=== PATIENT | female | born 1960 | race Caucasian/White ===

== ENCOUNTER 2022-07-19 15:50 | Outpatient (CLI) | payer OTHER, SELFPAY ==
[2022-07-19 21:59] LABS: Chloride* 96 mmol/L (96-114); Sodium* 133 mmol/L (135-149)
[2022-07-19 22:00] LABS: Potassium* 4.7 mmol/L (3.6-5.1)
[2022-07-19 22:01] LABS: Cholesterol* 305 mg/dL (90-199); Creatinine* 0.7 mg/dL (0.5-1.5); Estimated Glomerular Filt Rate 97 ml/min
[2022-07-19 22:02] LABS: Alanine Aminotransferase* 44 U/L (4-35); Alkaline Phosphatase* 83 U/L (40-150); Aspartate Amino Transferase* 40 U/L (12-35); Bilirubin Total* 0.6 mg/dL (0.1-1.5); Blood Urea Nitrogen* 18 mg/dL (7-30); Carbon Dioxide* 25 mmol/L (20-32); Glucose* 96 mg/dL (60-115); Total Protein* 8.1 g/dL (6.0-8.3); Triglycerides* 133 mg/dL (40-149)
[2022-07-19 22:03] LABS: Calcium* 9.8 mg/dL (8.4-10.6)
[2022-07-19 22:47] LABS: HDL Cholesterol* 119 mg/dL (>=50); LDL Cholesterol Calculated 159 mg/dL (<100)
[2022-07-19 22:50] LABS: Hepatitis C Virus Antibody* Negative (Negative)
== END 2022-07-19 15:51 | disposition home or self-care (01) ==
PROVIDERS: PCP Family Medicine; Visit Provider Family Medicine
DX: Z00.00 Encounter for general adult medical examination without abnormal findings (principal); E03.9 Hypothyroidism, unspecified; Z13.6 Encounter for screening for cardiovascular disorders; Z11.59 Encounter for screening for other viral diseases
CPT/HCPCS: 80053; 80061; 84443; 86803

== ENCOUNTER 2024-01-23 09:51 | Outpatient (CLI) | payer OTHER, SELFPAY | END 2024-01-23 09:52 | disposition home or self-care (01) | PROVIDERS: PCP Family Medicine; Visit Provider Family Medicine | DX: E03.9 Hypothyroidism, unspecified (principal); Z13.228 Encounter for screening for other metabolic disorders; Z13.220 Encounter for screening for lipoid disorders; Z11.59 Encounter for screening for other viral diseases | CPT/HCPCS: 80053; 80061; 84443; 86803 ==

== ENCOUNTER 2024-06-17 13:59 | Outpatient (CLI) | payer OTHER, SELFPAY | END 2024-06-17 14:00 | disposition home or self-care (01) | PROVIDERS: PCP Family Medicine; Visit Provider Family Medicine | DX: Z00.00 Encounter for general adult medical examination without abnormal findings (principal); E03.9 Hypothyroidism, unspecified; Z13.6 Encounter for screening for cardiovascular disorders; Z13.1 Encounter for screening for diabetes mellitus | CPT/HCPCS: 80053; 80061; 84439; 84443 ==

== ENCOUNTER 2024-07-23 09:46 | Outpatient (CLI) | payer OTHER, SELFPAY ==
--- NOTE | 2024-07-23 10:15 | CRLHL7_ITS ---
For Patients: As a result of the Century Cures Act, medical imaging exams and procedure reports are released immediately into your electronic medical record. You may view this report before your referring provider. If you have questions, please contact your health care provider. CLINICAL HISTORY: Elevated LFTs FINDINGS: The patient`s liver is of normal size and has uniform echogenicity. There is a normal appearance of the hepatic IVC and proximal abdominal aorta. There is no evidence of ascites. The gallbladder is of normal size and there is no evidence of intraluminal stones or sludge. The gallbladder wall measures 2 mm in thickness. The common bile duct is of normal size and measures 3 mm in diameter at the level of the adryan hepatis. The pancreas appears normal. Right kidney is unremarkable. IMPRESSION: Unremarkable right upper quadrant ultrasound. Dictated by Mily Gaspar MD @ 07/26/2024 9:04:06 AM (Electronically Signed)
== END 2024-07-23 09:47 | disposition home or self-care (01) ==
PROVIDERS: PCP Family Medicine; Visit Provider Family Medicine
DX: R79.89 Other specified abnormal findings of blood chemistry (principal)
CPT/HCPCS: 76705

== ENCOUNTER 2024-09-09 13:57 | Outpatient (CLI) | payer OTHER, SELFPAY ==
--- NOTE | 2024-09-09 14:30 | XR_ITS ---
Patient: YOHANA MARKHAM Facility:?[facility] Patient ID:?[id number] Site Patient ID:?[id number]. Site :?[id number] Study:?DEXA-Bone Density [place]/ madhav hips-09/09/2024 10:01:46 AM Ordering Physician:?YOBANY DEMARCO Final Report: XR DXA Bone Mineral Density (BMD) Reason for exam: Screening for osteoporosis. Hyperparathyroidism. Current height (in): 63. Weight (lb): 150. Menopause age: 51. Ethnicity: White. 1. Have you had a previous hip or vertebral fracture? No. 2. Have you had any fractures during your adult life which did not result from significant trauma (e.g., auto accident)? No. 3. Did either of your parents have a hip fracture? No. 4. Do you smoke? No. 5. Have you ever taken Glucocorticoids? No. 6. Do you have rheumatoid arthritis? No. 7. Do you have secondary osteoporosis? No. 8. Do you drink 3 or more alcoholic drinks per day? No. 9. Are you being treated for osteoporosis? No. 10. Have you ever taken any of the following medications: Actonel, Evista, Fosamax, Miacalcin, Reclast, Boniva, Forteo, HRT (i.e. estrogen/hormone therapy), Protelos, Prolia, Vitamin D, Calcium, other ? please specify. ANSWER: Yes, Synthroid. 11. Do you have any of the following medical conditions: Anorexia or bulimia, asthma or emphysema, end stage renal disease, hyperparathyroidism, any seizure disorders, cancer, inflammatory bowel diseases, hysterectomy, other ? please specify. ANSWER: Yes, hyperparathyroidism, hysterectomy. 12. What was your maximum height (inches)? 64. 13. Do you perform weight bearing exercise regularly? Yes. 14. Do you regularly consume dairy products? Yes. 15. Do you drink caffeinated beverages? Yes. 16. At what age did your period start? 11. 17. Are you premenopausal? No. 18. How many full term pregnancies have you had? 2. 19. Have you ever missed your period for more than 6 months in a row (not including or menopause)? No. TECHNIQUE: Bone mineral density study was performed using the [facility]. FINDINGS: The results of the study expressed as bone mineral density (BMD) are as follows: Lumbar spine L1 to L4: BMD: 0.999 g/cm2. T-score: 0.1. Z-score: 1.7. Neck Left: BMD: 0.748 g/cm2. T-score: -0.9. Z-score: 0.7. Right: BMD: 0.744 g/cm2. T-score: -0.9. Z-score: 0.6. Total Left: BMD: 1.008 g/cm2. T-score: 0.5. Z-score: 1.8. Right: BMD: 0.969 g/cm2. T-score: 0.2. Z-score: 1.5. IMPRESSION: Normal bone density. John Caba M.D. Diagnostic Radiologist [email or web address] CHUCHO/vanessa / bM/Dictated by: John Caba MD @ 09/10/2024 10:17:00 AM (Electronic Signature)
--- NOTE | 2024-09-09 15:20 | CRLHL7_ITS ---
For Patients: As a result of the Century Cures Act, medical imaging exams and procedure reports are released immediately into your electronic medical record. You may view this report before your referring provider. If you have questions, please contact your health care provider. BILATERAL SCREENING MAMMOGRAM WITH COMPUTER-AIDED DETECTION AND TOMOSYNTHESIS TECHNIQUE: CC and MLO views were obtained. These mammographic images have been obtained using full-field digital technique. These mammographic images were interpreted with the benefit of computer-aided detection. Breast Tomosynthesis was used in this interpretation. COMPARISON FILM: No comparison available. FINDINGS: The breasts are heterogeneously dense, which may obscure small masses. IMPRESSION: There is no radiographic evidence for malignancy. ASSESSMENT: BI-RADS Category 1: Negative RECOMMENDATION: Routine screening mammogram in 1 year. A lay language report of this examination will be provided to the patient. John Caba M.D. Diagnostic Radiologist [email or web address] SP/Dictated by: John Caba MD @ 09/20/2024 11:37:00 AM (Electronically Signed)
== END 2024-09-09 13:58 | disposition home or self-care (01) ==
LOC: RAD 13:57
PROVIDERS: PCP Family Medicine; Visit Provider Family Medicine
DX: Z12.31 Encounter for screening mammogram for malignant neoplasm of breast (principal); R92.333 Mammographic heterogeneous density, bilateral breasts; Z13.820 Encounter for screening for osteoporosis; E21.3 Hyperparathyroidism, unspecified
CPT/HCPCS: 77063; 77067; 77080

== ENCOUNTER 2025-07-12 14:36 | Outpatient (CLI) | payer MEDICARE, SELFPAY | END 2025-07-12 14:37 | disposition home or self-care (01) | PROVIDERS: PCP Family Medicine; Visit Provider Family Medicine | DX: E03.9 Hypothyroidism, unspecified (principal); R79.89 Other specified abnormal findings of blood chemistry; Z00.00 Encounter for general adult medical examination without abnormal findings | CPT/HCPCS: 80053; 80061; 84443 ==